=== PATIENT | male | born 1985 | race Caucasian/White ===

== ENCOUNTER 2019-01-26 14:18 | Outpatient (CLI) | payer OTHER | END 2019-01-26 14:19 | disposition home or self-care (01) | LOC: SC 14:18 | PROVIDERS: ATTEND Internal Medicine Pulmonary Disease | DX: R06.83 Snoring (principal) | CPT/HCPCS: 99203; 99212 ==

== ENCOUNTER 2019-04-10 19:33 | Outpatient (CLI) | payer OTHER | END 2019-04-10 19:34 | disposition home or self-care (01) | LOC: SC 19:33 | PROVIDERS: ATTEND Internal Medicine Pulmonary Disease | DX: R06.83 Snoring (principal); G47.61 Periodic limb movement disorder | CPT/HCPCS: 95810 ==

== ENCOUNTER 2019-06-11 15:11 | Outpatient (CLI) | payer OTHER ==
--- NOTE | 2019-06-15 06:36 | MRI Report ---
Reason: PAIN IN 2ND AND 3RD TOES ON LEFT FOOT. Procedure Date: 06/11/2019 Accession Number: [id number] / [id number] Procedure: MRI - Foot LT W/O CPT Code: FULL RESULT: EXAM: LEFT FOREFOOT MRI WITHOUT CONTRAST EXAM DATE: 06/11/2019 04:24 PM. CLINICAL HISTORY: PAIN IN 2ND AND 3RD TOES ON LEFT FOOT. COMPARISON: None. TECHNIQUE: Multiplanar, multisequence T1-weighted and fluid-sensitive sequences of the forefoot without contrast. Other: None. FINDINGS: FINDINGS: Bones: There are no visible fractures. There is no marrow edema in the region of interest. There are claw toe deformities of the second fifth digits. Articular Cartilage: There is mild osteoarthritis of the first metatarsophalangeal joint with cartilage erosion and small osteophytes. There is a small joint effusion. Ligaments: The visualized collateral ligaments are intact. Tendons: The flexor and extensor tendons are unremarkable. Musculature: No edema or fatty atrophy. Other: No intermetatarsal bursitis. The subcutaneous tissues are unremarkable. IMPRESSION: 1. 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 2. Mild osteoarthritis of the first metatarsophalangeal joint. [facility]
== END 2019-06-11 15:12 | disposition home or self-care (01) ==
LOC: DI 15:11
PROVIDERS: ATTEND Physician Assistant
DX: Q66.89 Other specified congenital deformities of feet (principal); M19.071 Primary osteoarthritis, right ankle and foot

== ENCOUNTER 2019-07-15 13:44 | Outpatient (CLI) | payer OTHER ==
[2019-07-15 14:35] VITALS: BP 112/70
--- NOTE | 2019-07-15 14:35 | SLEEP CARE CONSULTATION ---
Information from patient questionnaire entered by Syeda Hyman. I have reviewed and concur with the information entered by Syeda Hyman. This document represents the service I personally performed and the decisions made by me, Kaitlin Hopkins, RN, MSN, [employer]. History of Present Illness Reason for CPAP/BiPAP follow up: other (6 week positional therapy) HPI additional information: Patient returns for follow up of positional therapy. He had a polysomnography which showed overall AHI of 3.3 but elevated AHI of 7.6 in supine position. His main concern was his snoring was interfering with spouse sleep. Thus he was started on positional therapy. He used sleeping next to the wall his method of sleeping to keep off his back. He has been noted to be on is back only about 7-8 times by his spouse. His spouse has noted less snoring with positional therapy and is now sleeping better. He was not tired at initial evaluation and is not tired now. There is no change noted with positional therapy. He feels this method is working to reduce snoring for spouse sleep. Subjective Initial [place] Sleepiness Scale score: 6 Current [place] Sleepiness Scale score: 5 Allergies and Home Medications Known drug allergies: No Home medication list reviewed: No (none) Review of Systems Review of systems same as previous: Yes Physical Exam Blood Pressure: 112/70 Cuff size: long Heart Rate: 83 O2 Saturation: 98 Height: 5 ft 11.25 in Weight (kg): 207 lb 9.6 oz (with fatigues and boots ) Body Mass Index: 28.7 BMI Classification: Overweight Impression and Plan Additional Plan: Snoring but no significant sleep disordered breathing except supine. Patient tried positional therapy to reduce snoring for spouse's sleep and feels it has been successful. He denies any sleepiness symptoms at initial evaluation or now after treatment. His current method of positional therapy is working most of time to keep him off his back. However, I emphasized that he has to wear either a Tshirt with tennis balls sewn in back or a commercial method to ensure he stays off his back. He agreed and will probably buy the commercial product due to convenience. I again reviewed the option of using an oral appliance to reduce snoring and he would like to consider. He is advised to discuss with his upcoming dental appointment. The [facility] may have a dentist who makes an mandibular advancement device. He is to check if insurance covers. Risks of oral appliance is jaw discomfort / alignment. I also reviewed again how weight loss could reduce snoring and apnea but patient does not feel he can lose weight to goal. AASM NON PAP treatment given again and reviewed. If symptoms worsen, he is to follow up for further evaluation. * Continue positional therapy * Consider oral appliance * Attempt to lose weight * Avoid alcohol consumption near bedtime * Return for follow up if symptoms worsen for re-evaluation. I spent 100% of this 18 minute visit face to face with the patient with greater than 50% of this was spent time counseling the patient and coordination of care.
== END 2019-07-15 13:45 | disposition home or self-care (01) ==
LOC: SC 13:44
PROVIDERS: ATTEND Nurse Practitioner Family
DX: R06.83 Snoring (principal)
CPT/HCPCS: 99212; 99213